=== PATIENT | male | born 1970 | race Caucasian/White ===

== ENCOUNTER 2019-01-15 08:07 | Inpatient (IN) | payer OTHER ==
[2019-01-15 08:44] VITALS: BMI 25.0
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
[2019-01-15] MEDS ORDERED: MAGNESIUM HYDROX 2400MG/30ML ORAL SUSPENSION 30 ML CUP PO PRN (09:37)
[2019-01-15] MEDS ORDERED: MAGNESIUM CITRATE 300 ML BOTTLE PO PRN (09:37)
[2019-01-15] MEDS ORDERED: BISMUTH SUBSALICYLATE 262 MG/15 ML BTL PO PRN (09:37)
[2019-01-15] MEDS ORDERED: MAG HYDROX/AL HYDROX/SIMETH 30 ML UNIT-DOSE CUP PO PRN (09:37)
[2019-01-15] MEDS ORDERED: MENTHOL/PHENOL 1 EACH UD MM PRN (09:37)
[2019-01-15] MEDS ORDERED: ACETAMINOPHEN 325 MG TABLET (FP) PO PRN ×2 (09:37)
[2019-01-15] MEDS ORDERED: NICOTINE 7 MG/24 HOURS TOPICAL PATCH TD SCH (10:00)
[2019-01-15] MEDS: diazePAM 5 MG TABLET PO PRN ×2 (10:31→17:31)
[2019-01-15] MEDS: NICOTINE 21 MG/24 HOURS TOPICAL PATCH TD SCH (10:31)
[2019-01-15] MEDS: PRENATAL VITAMINS W/ FOLIC ACID TABLET (FP) PO SCH (10:32)
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
[2019-01-15] MEDS: diazePAM 5 MG TABLET PO SCH ×2 (13:30→22:18)
[2019-01-15] MEDS: hydrOXYzine PAMOATE 25 MG CAPSULE (FP) PO PRN (14:44)
[2019-01-15] MEDS: THIAMINE HCL 100 MG TABLET (FP) PO SCH (22:18)
[2019-01-16] MEDS: diazePAM 5 MG TABLET PO SCH ×2 (05:19→17:13)
[2019-01-16] MEDS: PRENATAL VITAMINS W/ FOLIC ACID TABLET (FP) PO SCH (10:08)
[2019-01-16] MEDS: NICOTINE 21 MG/24 HOURS TOPICAL PATCH TD SCH (10:10)
[2019-01-16] MEDS: diazePAM 5 MG TABLET PO PRN ×2 (10:10→21:56)
[2019-01-16 12:15] LABS: ALBUMIN 3.4 g/dl (3.4-5.0); BILIRUBIN,TOTAL 0.4 mg/dL (0.2-1); BLOOD UREA NITROGEN 19.9 mg/dL (7-18); CALCIUM 8.6 mg/dL (8.5-10.1); CREATININE 0.7 mg/dL (0.55-1.3); POTASSIUM 4.3 mmol/L (3.5-5.1); TOT PROT 5.9 g/dl (6.4-8.2)
[2019-01-16 12:23] LABS: HEMATOCRIT 52.3 % (35.4-49); HEMOGLOBIN 17.5 GM/dL (11.7-16.9); MCH 30.1 pg (25.7-33.7); MCHC 33.5 g/dl (32.0-35.9); PLATELET COUNT 174 K/MM3 (134-434); RDW 14.3 % (11.9-15.9); WHITE BLOOD COUNT 7.7 K/mm3 (4.0-10.0)
--- NOTE | 2019-01-16 14:39 | PN ---
[facility] CIWA - CIWA Score Nausea/Vomitin-Mild Nausea/No Vomiting Muscle Tremors: 2 Anxiety: 4-Mod. Anxious/Guarded Agitation: 3 Paroxysmal Sweats: 2 Orientation: 0-Oriented Tacttile Disturbances: 1-Very Mild Itch/Numbness Auditory Disturbances: 0-None Visual Disturbances: 0-None Headache: 0-None Present CIWA-Ar Total Score: 13 S Progress Note (SOAP) Subjective: doing well with valium detox regimen ate breakfast and lunch ambulating on hallway limited conversation with staff Objective: 01/16/19 14:38 Vital Signs Temperature 97.5 F L 01/16/19 13:26 Pulse Rate 79 01/16/19 13:26 Respiratory Rate 18 01/16/19 13:26 Blood Pressure 128/89 01/16/19 13:26 O2 Sat by Pulse Oximetry (%) Laboratory Last Values WBC 7.7 K/mm3 (4.0-10.0) 01/16/19 08:30 RBC 5.80 M/mm3 (4.00-5.60) H 01/16/19 08:30 Hgb 17.5 GM/dL (11.7-16.9) H 01/16/19 08:30 Hct 52.3 % (35.4-49) H 01/16/19 08:30 MCV 90.0 fl (80-96) 01/16/19 08:30 MCH 30.1 pg (25.7-33.7) 01/16/19 08:30 MCHC 33.5 g/dl (32.0-35.9) 01/16/19 08:30 RDW 14.3 % (11.9-15.9) 01/16/19 08:30 Plt Count 174 K/MM3 (134-434) 01/16/19 08:30 MPV 9.0 fl (7.5-11.1) 01/16/19 08:30 Sodium 146 mmol/L (136-145) H 01/16/19 08:30 Potassium 4.3 mmol/L (3.5-5.1) 01/16/19 08:30 Chloride 107 mmol/L (98-107) 01/16/19 08:30 Carbon Dioxide 26 mmol/L (21-32) 01/16/19 08:30 Anion Gap 13 MMOL/L (8-16) 01/16/19 08:30 BUN 19.9 mg/dL (7-18) H 01/16/19 08:30 Creatinine 0.7 mg/dL (0.55-1.3) 01/16/19 08:30 Est GFR (CKD-EPI)AfAm 126.64 01/16/19 08:30 Est GFR (CKD-EPI)NonAf 109.27 01/16/19 08:30 Random Glucose 90 mg/dL (74-106) 01/16/19 08:30 Calcium 8.6 mg/dL (8.5-10.1) 01/16/19 08:30 Total Bilirubin 0.4 mg/dL (0.2-1) 01/16/19 08:30 AST 19 U/L (15-37) 01/16/19 08:30 ALT 19 U/L (13-61) 01/16/19 08:30 Alkaline Phosphatase 98 U/L (45-117) 01/16/19 08:30 Total Protein 5.9 g/dl (6.4-8.2) L 01/16/19 08:30 Albumin 3.4 g/dl (3.4-5.0) 01/16/19 08:30 RPR Titer Nonreactive (NONREACTIVE) 01/16/19 08:30 lab noted Assessment: 01/16/19 14:40 alcohol withdrawal sx alert 01/16/19 14:40 respiratory clear lung bilaterally on auscultation Plan: continue valium detox regimen estimated discharge date 01/18/19
[2019-01-16] MEDS: THIAMINE HCL 100 MG TABLET (FP) PO SCH (21:56)
[2019-01-16] MEDS: MELATONIN 5 MG TABLETS PO PRN (21:57)
[2019-01-17] MEDS ORDERED: diazePAM 5 MG TABLET PO ONE ×2 (06:00→22:00)
[2019-01-17] MEDS ORDERED: METHOCARBAMOL 500 MG TABLET PO PRN (09:34)
[2019-01-17] MEDS: NICOTINE 21 MG/24 HOURS TOPICAL PATCH TD SCH (10:12)
[2019-01-17] MEDS: PRENATAL VITAMINS W/ FOLIC ACID TABLET (FP) PO SCH (10:12)
[2019-01-17] MEDS: diazePAM 5 MG TABLET PO PRN (10:14)
[2019-01-17] MEDS: hydrOXYzine PAMOATE 25 MG CAPSULE (FP) PO PRN ×2 (16:31→21:45)
--- NOTE | 2019-01-17 17:34 | PN ---
[facility] CIWA - CIWA Score Nausea/Vomitin-No Nausea/No Vomiting Muscle Tremors: None Anxiety: 4-Mod. Anxious/Guarded Agitation: 3 Paroxysmal Sweats: 3 Orientation: 0-Oriented Tacttile Disturbances: 0-None Auditory Disturbances: 0-None Visual Disturbances: 2-Mild Sensitivity Headache: 0-None Present CIWA-Ar Total Score: 12 S Progress Note (SOAP) Subjective: Sweating, Anxious, Body Aches. Objective: PATIENT A & O X 3, OBSERVED AMBULATING ON UNIT UNASSISTED. IN NO ACUTE DISTRESS. 01/17/19 17:32 Vital Signs Temperature 97.9 F 01/17/19 13:50 Pulse Rate 87 01/17/19 13:50 Respiratory Rate 18 01/17/19 13:50 Blood Pressure 121/80 01/17/19 13:50 O2 Sat by Pulse Oximetry (%) Laboratory Tests 01/16/19 01/16/19 01/16/19 08:30 08:30 08:30 WBC 7.7 RBC 5.80 H Hgb 17.5 H Hct 52.3 H MCV 90.0 MCH 30.1 MCHC 33.5 RDW 14.3 Plt Count 174 MPV 9.0 Sodium 146 H Potassium 4.3 Chloride 107 Carbon Dioxide 26 Anion Gap 13 BUN 19.9 H Creatinine 0.7 Est GFR (CKD-EPI)AfAm 126.64 Est GFR (CKD-EPI)NonAf 109.27 Random Glucose 90 Calcium 8.6 Total Bilirubin 0.4 AST 19 ALT 19 Alkaline Phosphatase 98 Total Protein 5.9 L Albumin 3.4 RPR Titer Nonreactive LABS NOTED. RESULTS OF DETOX ADMISSION QFT /TB TEST PENDING. 01/17/19 17:32 Assessment: 01/17/19 17:32 WITHDRAWAL SYMPTOMS. Plan: CONTINUE DETOX. INCREASE DAILY PO WATER INTAKE. DUE TO SEVERITY OF CURRENT WITHDRAWAL / DETOX SYMPTOMS, PATIENT GRANTED ONE ADDITIONAL DAY OF DETOX, WILL BE DISCHARGED FROM DETOX UNIT TOMORROW AM.
[2019-01-17] MEDS: THIAMINE HCL 100 MG TABLET (FP) PO SCH (21:44)
[2019-01-17] MEDS: MELATONIN 5 MG TABLETS PO PRN (21:44)
[2019-01-18] MEDS: diazePAM 5 MG TABLET PO PRN (01:29)
[2019-01-18] MEDS ORDERED: diazePAM 5 MG TABLET PO ONE (06:00)
[2019-01-18 09:04] VITALS: BP 104/66; PULSE 67; TEMP 96
[2019-01-18] MEDS: NICOTINE 21 MG/24 HOURS TOPICAL PATCH TD SCH (09:50)
[2019-01-18] MEDS: PRENATAL VITAMINS W/ FOLIC ACID TABLET (FP) PO SCH (09:50)
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
== END 2019-01-18 15:08 | disposition other institution (70) | DRG 775 ==
LOC: YASAS 08:07 → Y3N 09:59
PROVIDERS: ADMIT Surgery; ATTEND Surgery
PROC: HZ2ZZZZ Detoxification Services for Substance Abuse Treatment (ICD-10-PCS; principal; 2019-01-15)
DX: F10.230 Alcohol dependence with withdrawal, uncomplicated (principal); F17.210 Nicotine dependence, cigarettes, uncomplicated
CPT/HCPCS: 36415; 80053; 85027; 86480; 86593

== ENCOUNTER 2019-01-18 15:20 | Inpatient (IN) | payer OTHER ==
[2019-01-18] MEDS ORDERED: MAGNESIUM HYDROX 2400MG/30ML ORAL SUSPENSION 30 ML CUP PO PRN (15:26)
[2019-01-18] MEDS ORDERED: ACETAMINOPHEN 325 MG TABLET (FP) PO PRN (15:26)
[2019-01-18] MEDS ORDERED: P-EPHED 60MG/TRIPROLIDI 2.5MG TABLET PO PRN (15:26)
[2019-01-18] MEDS ORDERED: MAG HYDROX/AL HYDROX/SIMETH 30 ML UNIT-DOSE CUP PO PRN (15:26)
[2019-01-18] MEDS ORDERED: MAGNESIUM CITRATE 300 ML BOTTLE PO PRN (15:26)
[2019-01-18] MEDS ORDERED: guaiFENesin 200 MG/10 ML 10 ML UNIT-DOSE CUPS PO PRN (15:26)
[2019-01-18] MEDS ORDERED: MENTHOL/PHENOL 1 EACH UD MM PRN (15:26)
--- NOTE | 2019-01-18 15:28 | HP ---
[facility] Rehab Assess/Revision - Admission History Ad[facility] to Rehab [facility] Date of Admission to Rehab: 01/18/2019 - Vital signs Vital Signs: NOTED; STABLE. - Findings Detox History & Physical reviewed: Yes Concur with findings: Yes Comments/Additional Findings: PATIENT'S MEDICAL / MEDICATION HISTORY REVIEWED PRIOR TO DISCHARGE FROM DETOX UNIT. PATIENT WAS DISCHARGED FROM DETOX UNIT TO BE TAKEN OVER TO REHAB UNIT IN STABLE MEDICAL CONDITION. RESULT OF DETOX ADMISSION QFT / TB TEST PENDING AT TIME OF DISCHARGE FROM DETOX UNIT, WILL BE NOTED ON REHAB UNIT ONCE RESULT IS AVAILABLE. Inpatient Rehab Admission - Rehab Decision to Admit Inpatient rehab admission?: Yes - Initial Determination Are CD services needed?: Yes Free of communicable disease: Yes Not in need of hospitalization: Yes - Rehab Admission Criteria Previous failed treatment: Yes Poor recovery environment: Yes Comorbidities: Yes Lacks judgement: Yes Patient is meeting Inpatient Rehab admission criteria:: Yes
[2019-01-18] MEDS: THIAMINE HCL 100 MG TABLET (FP) PO SCH (21:25)
[2019-01-18] MEDS: IBUPROFEN 400 MG TABLET (FP) PO PRN (21:26)
[2019-01-18] MEDS: MELATONIN 5 MG TABLETS PO PRN (21:26)
[2019-01-19] MEDS: LOPERAMIDE HCL 2 MG CAPSULE PO PRN ×3 (04:11→21:14)
[2019-01-19] MEDS: PRENATAL VITAMINS W/ FOLIC ACID TABLET (FP) PO SCH (10:02)
[2019-01-19] MEDS: NICOTINE 21 MG/24 HOURS TOPICAL PATCH TD SCH (10:02)
[2019-01-19] MEDS: MELATONIN 5 MG TABLETS PO PRN (21:12)
[2019-01-19] MEDS: THIAMINE HCL 100 MG TABLET (FP) PO SCH (21:12)
[2019-01-20] MEDS: IBUPROFEN 400 MG TABLET (FP) PO PRN ×2 (06:23→21:19)
[2019-01-20] MEDS: LOPERAMIDE HCL 2 MG CAPSULE PO PRN (06:25)
[2019-01-20] MEDS: PRENATAL VITAMINS W/ FOLIC ACID TABLET (FP) PO SCH (10:21)
[2019-01-20] MEDS: NICOTINE 21 MG/24 HOURS TOPICAL PATCH TD SCH (10:21)
[2019-01-20] MEDS: BISMUTH SUBSALICYLATE 524 MG/30 ML UD PO PRN ×2 (11:59→21:18)
[2019-01-20] MEDS: THIAMINE HCL 100 MG TABLET (FP) PO SCH (21:16)
[2019-01-20] MEDS: MELATONIN 5 MG TABLETS PO PRN (21:16)
[2019-01-21] MEDS: NICOTINE 21 MG/24 HOURS TOPICAL PATCH TD SCH (10:33)
[2019-01-21] MEDS: PRENATAL VITAMINS W/ FOLIC ACID TABLET (FP) PO SCH (10:33)
[2019-01-21] MEDS: BISMUTH SUBSALICYLATE 524 MG/30 ML UD PO PRN ×2 (10:36→21:24)
--- NOTE | 2019-01-21 13:42 | PN ---
[facility] Progress Note Note: Pt states having difficulty sleeping. Has h/o anxiety, restlessness. Was having diarrhea, which is now resolving Consult with ordered One dose trazodone for sleep tonight
[2019-01-21] MEDS: THIAMINE HCL 100 MG TABLET (FP) PO SCH (21:21)
[2019-01-21] MEDS: MELATONIN 5 MG TABLETS PO PRN (21:22)
[2019-01-21] MEDS: IBUPROFEN 400 MG TABLET (FP) PO PRN (21:23)
[2019-01-22] MEDS: IBUPROFEN 400 MG TABLET (FP) PO PRN ×2 (10:12→21:33)
[2019-01-22] MEDS: NICOTINE 21 MG/24 HOURS TOPICAL PATCH TD SCH (10:12)
[2019-01-22] MEDS: PRENATAL VITAMINS W/ FOLIC ACID TABLET (FP) PO SCH (10:12)
--- NOTE | 2019-01-22 10:29 | PN ---
[facility] Progress Note Note: Pt reports he needs to see the "shrink" because "I have not slept for 3-4 days" . Pt received melatonin 5 mg po last night but states "i need stronger medicine for sleep. I've tried Trazodone up to 300 mg in the past. Pt reports hx anxiety and reports I used to take Rx xanax about 12 years ago". Pt states has been on Remeron in the past but "it did not work for me". Pt will preferre to see psych professional before taking any other sleeping aid. Vital Signs - 24 hr 01/22/19 01/22/19 01/22/19 00:30 03:30 06:41 Temperature 97.4 F L Pulse Rate 67 Respiratory 18 18 18 Rate Blood Pressure 109/69 A/P sleeping disorder psych consult ordered today.
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
[2019-01-22] MEDS: THIAMINE HCL 100 MG TABLET (FP) PO SCH (21:34)
[2019-01-22] MEDS: BISMUTH SUBSALICYLATE 524 MG/30 ML UD PO PRN (21:35)
[2019-01-22] MEDS ORDERED: SUVOREXANT 10 MG TABLET PO PRN (22:00)
[2019-01-23] MEDS: NICOTINE 21 MG/24 HOURS TOPICAL PATCH TD SCH (10:18)
[2019-01-23] MEDS: PRENATAL VITAMINS W/ FOLIC ACID TABLET (FP) PO SCH (10:18)
--- NOTE | 2019-01-23 13:36 | PN ---
S Progress Note Note: Patient reports sleeping poorly despite taking Belsomra 10 mg at bedtime last night. Will increase medication dosage to 15 mg/hs
[2019-01-23] MEDS: THIAMINE HCL 100 MG TABLET (FP) PO SCH (21:24)
[2019-01-23] MEDS: SUVOREXANT 15 MG TABLET PO PRN (21:24)
[2019-01-23] MEDS: IBUPROFEN 400 MG TABLET (FP) PO PRN (21:25)
[2019-01-24] MEDS: NICOTINE 21 MG/24 HOURS TOPICAL PATCH TD SCH (10:12)
[2019-01-24] MEDS: PRENATAL VITAMINS W/ FOLIC ACID TABLET (FP) PO SCH (10:12)
[2019-01-24] MEDS: THIAMINE HCL 100 MG TABLET (FP) PO SCH (21:18)
[2019-01-24] MEDS: IBUPROFEN 400 MG TABLET (FP) PO PRN (21:19)
[2019-01-24] MEDS: SUVOREXANT 15 MG TABLET PO PRN (21:19)
[2019-01-25] MEDS: BISMUTH SUBSALICYLATE 524 MG/30 ML UD PO PRN ×2 (06:32→21:16)
[2019-01-25] MEDS: NICOTINE 21 MG/24 HOURS TOPICAL PATCH TD SCH (10:00)
[2019-01-25] MEDS: PRENATAL VITAMINS W/ FOLIC ACID TABLET (FP) PO SCH (10:01)
[2019-01-25 11:34] LABS: HEMATOCRIT 53.3 % (35.4-49); HEMOGLOBIN 18.2 GM/dL (11.7-16.9); MCH 30.6 pg (25.7-33.7); MCHC 34.3 g/dl (32.0-35.9); MEAN CELL VOLUME 89.4 fl (80-96); MEAN PLT VOLUME 8.8 fl (7.5-11.1); PLATELET COUNT 225 K/MM3 (134-434); RBC 5.95 M/mm3 (4.00-5.60); RDW 14.1 % (11.9-15.9); WHITE BLOOD COUNT 9.2 K/mm3 (4.0-10.0)
[2019-01-25] MEDS: THIAMINE HCL 100 MG TABLET (FP) PO SCH (21:14)
[2019-01-25] MEDS: SUVOREXANT 15 MG TABLET PO PRN (21:16)
[2019-01-25] MEDS: IBUPROFEN 400 MG TABLET (FP) PO PRN (21:16)
[2019-01-26] MEDS: NICOTINE 21 MG/24 HOURS TOPICAL PATCH TD SCH (09:56)
[2019-01-26] MEDS: PRENATAL VITAMINS W/ FOLIC ACID TABLET (FP) PO SCH (09:56)
[2019-01-26] MEDS: BISMUTH SUBSALICYLATE 524 MG/30 ML UD PO PRN ×2 (14:16→21:34)
[2019-01-26] MEDS: SUVOREXANT 15 MG TABLET PO PRN (21:33)
[2019-01-26] MEDS: IBUPROFEN 400 MG TABLET (FP) PO PRN (21:33)
[2019-01-26] MEDS: THIAMINE HCL 100 MG TABLET (FP) PO SCH (21:34)
[2019-01-27] MEDS: NICOTINE 21 MG/24 HOURS TOPICAL PATCH TD SCH (09:57)
[2019-01-27] MEDS: PRENATAL VITAMINS W/ FOLIC ACID TABLET (FP) PO SCH (09:57)
[2019-01-27] MEDS: THIAMINE HCL 100 MG TABLET (FP) PO SCH (21:22)
[2019-01-27] MEDS: IBUPROFEN 400 MG TABLET (FP) PO PRN (21:23)
[2019-01-27] MEDS: BISMUTH SUBSALICYLATE 524 MG/30 ML UD PO PRN (21:24)
[2019-01-28] MEDS: PRENATAL VITAMINS W/ FOLIC ACID TABLET (FP) PO SCH (10:12)
[2019-01-28] MEDS: NICOTINE 21 MG/24 HOURS TOPICAL PATCH TD SCH (10:12)
[2019-01-28] MEDS: BISMUTH SUBSALICYLATE 524 MG/30 ML UD PO PRN (10:15)
--- NOTE | 2019-01-28 10:32 | PN ---
[facility] Progress Note Note: Repeat lab reviewed with patient. Alert o x 3. Nad oob ambulating with steady gait Laboratory Tests 01/25/19 08:49 WBC 9.2 RBC 5.95 H Hgb 18.2 H Hct 53.3 H MCV 89.4 MCH 30.6 MCHC 34.3 RDW 14.1 Plt Count 225 D MPV 8.8 A/P H/H elevated, not resolved from detox labs Asymptomatic D/w patient to follow up with his primary care doctor after discharge for further medical work up. Pt agreeable to poc.
[2019-01-28] MEDS: THIAMINE HCL 100 MG TABLET (FP) PO SCH (21:20)
[2019-01-28] MEDS: MELATONIN 5 MG TABLETS PO PRN (21:20)
[2019-01-28] MEDS: SUVOREXANT 10 MG TABLET PO PRN (21:22)
[2019-01-28] MEDS: IBUPROFEN 400 MG TABLET (FP) PO PRN (21:22)
[2019-01-29] MEDS: NICOTINE 21 MG/24 HOURS TOPICAL PATCH TD SCH (10:14)
[2019-01-29] MEDS: PRENATAL VITAMINS W/ FOLIC ACID TABLET (FP) PO SCH (10:14)
[2019-01-29] MEDS: SUVOREXANT 10 MG TABLET PO PRN (21:34)
[2019-01-29] MEDS: THIAMINE HCL 100 MG TABLET (FP) PO SCH (21:35)
[2019-01-29] MEDS: MELATONIN 5 MG TABLETS PO PRN (21:36)
[2019-01-29] MEDS: IBUPROFEN 400 MG TABLET (FP) PO PRN (21:36)
[2019-01-29] MEDS: BISMUTH SUBSALICYLATE 524 MG/30 ML UD PO PRN (21:37)
[2019-01-30] MEDS: PRENATAL VITAMINS W/ FOLIC ACID TABLET (FP) PO SCH (10:31)
[2019-01-30] MEDS: NICOTINE 21 MG/24 HOURS TOPICAL PATCH TD SCH (10:31)
[2019-01-30] MEDS: SUVOREXANT 10 MG TABLET PO PRN (21:33)
[2019-01-30] MEDS: THIAMINE HCL 100 MG TABLET (FP) PO SCH (21:34)
[2019-01-30] MEDS: MELATONIN 5 MG TABLETS PO PRN (21:34)
[2019-01-30] MEDS: IBUPROFEN 400 MG TABLET (FP) PO PRN (21:34)
[2019-01-30] MEDS: BISMUTH SUBSALICYLATE 524 MG/30 ML UD PO PRN (21:36)
[2019-01-31] MEDS: NICOTINE 21 MG/24 HOURS TOPICAL PATCH TD SCH (10:35)
[2019-01-31] MEDS: PRENATAL VITAMINS W/ FOLIC ACID TABLET (FP) PO SCH (10:35)
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
[2019-01-31] MEDS: THIAMINE HCL 100 MG TABLET (FP) PO SCH (21:25)
[2019-01-31] MEDS: SUVOREXANT 10 MG TABLET PO PRN (21:26)
[2019-01-31] MEDS: IBUPROFEN 400 MG TABLET (FP) PO PRN (21:27)
[2019-01-31] MEDS: MELATONIN 5 MG TABLETS PO PRN (21:27)
[2019-01-31] MEDS: BISMUTH SUBSALICYLATE 524 MG/30 ML UD PO PRN (21:32)
[2019-02-01 07:04] VITALS: BP 111/71; PULSE 58; TEMP 97.4
[2019-02-01] MEDS: PRENATAL VITAMINS W/ FOLIC ACID TABLET (FP) PO SCH (10:01)
[2019-02-01] MEDS: NICOTINE 21 MG/24 HOURS TOPICAL PATCH TD SCH (10:02)
== END 2019-02-01 10:15 | disposition home or self-care (01) | DRG 772 ==
LOC: YASAS 15:20 → Y5N 15:21
PROVIDERS: ADMIT Neuromusculoskeletal Medicine & OMM; ATTEND Neuromusculoskeletal Medicine & OMM
PROC: HZ42ZZZ Group Counseling for Substance Abuse Treatment, Cognitive-Behavioral (ICD-10-PCS; principal; 2019-01-18)
DX: F10.20 Alcohol dependence, uncomplicated (principal); F17.210 Nicotine dependence, cigarettes, uncomplicated; F10.24 Alcohol dependence with alcohol-induced mood disorder; F10.282 Alcohol dependence with alcohol-induced sleep disorder; D58.2 Other hemoglobinopathies
CPT/HCPCS: 36415; 85027